=== PATIENT | female | born 1975 | race Caucasian/White ===

== ENCOUNTER → 2017-06-24 | Outpatient (CLI) | payer BC ==
[~2017-06-24] MED LIST: ACHYD1T PO; BIRTH CONTROL PO; DCS100C PO; HYDR25TA4 PO; IBP800T PO; METH250T; OXYC-272 PO; PREN1TAB39; PREN1TAB39 PO
--- NOTE | 2017-06-24 17:22 | Diagnostic Imaging Report ---
INDICATION: Routine screening. COMPARISON: Comparison is made with prior exam from 07/18/2014. The current study was also evaluated with a Computer Aided Detection (CAD) system. FINDINGS: Scattered fibroglandular densities are identified bilaterally. The parenchymal pattern appears stable. A benign-appearing nodular density in the upper-outer right breast appears stable. No new mass or malignant appearing microcalcifications are seen. The axillae are unremarkable. IMPRESSION: No mammographic features suspicious for malignancy are identified. ACR BI-RADS Category 2: Benign findings. Result letter will be mailed to the patient. Note: At least 10% of breast cancer is not imaged by mammography. Dictated by: Dictated on workstation # [id number]
== END ==
LOC: RAD 14:20
PROVIDERS: ATTEND Nurse Practitioner Family
DX: Z12.31 Encounter for screening mammogram for malignant neoplasm of breast (principal)
CPT/HCPCS: 77067

== ENCOUNTER → 2018-12-01 | Outpatient (CLI) | payer BC ==
--- NOTE | 2018-12-01 16:41 | Diagnostic Imaging Report ---
PROCEDURE: US Thyroid. TECHNIQUE: Multiple real-time grayscale images were obtained of the thyroid in various projections. INDICATION: Thyroid nodule. COMPARISON: December 11, 2013. FINDINGS: The right lobe of the thyroid gland measures 4.9 x 1.5 x 1.6 cm. A round peripherally calcified nodule is identified within the mid right thyroid lobe measuring 1.0 x 0.7 x 0.6 cm. This has not significantly changed since prior exam from 2013. No new nodules within the right thyroid lobe. The left lobe of the thyroid gland measures 4.9 x 1.4 x 1.9 cm. It maintains a homogeneous echotexture without discrete nodule. The isthmus is unremarkable. IMPRESSION: 1 cm peripherally calcified nodule within the mid right thyroid lobe, not significantly changed since 2014, consistent with benign etiology. No new thyroid nodules identified. Dictated by: Dictated on workstation # [id number]
== END ==
LOC: RAD 15:59
PROVIDERS: ATTEND Family Medicine
DX: Z12.31 Encounter for screening mammogram for malignant neoplasm of breast (principal); E04.1 Nontoxic single thyroid nodule
CPT/HCPCS: 76536

== ENCOUNTER → 2020-03-26 | Outpatient (CLI) | payer BC, OTHER ==
--- NOTE | 2020-03-26 13:57 | Diagnostic Imaging Report ---
INDICATION: Routine screening. COMPARISON: 11/24/2018 and 06/24/2017. TECHNIQUE: 2D and 3D bilateral screening mammography was performed with CAD. FINDINGS: Both breasts are heterogeneously dense, limiting the sensitivity of mammography. An intraparenchymal lymph node in the outer right breast is minimally larger when compared with the prior mammogram. No spiculated mass or malignant appearing microcalcifications are seen. The axillae are unremarkable. IMPRESSION: No mammographic features suspicious for malignancy are identified. ACR BI-RADS Category 2: Benign findings. Result letter will be mailed to the patient. Note: At least 10% of breast cancer is not imaged by mammography. Dictated by: Dictated on workstation # [id number]
== END ==
LOC: RAD 07:45
PROVIDERS: ATTEND Family Medicine
DX: Z12.31 Encounter for screening mammogram for malignant neoplasm of breast (principal)
CPT/HCPCS: 77063; 77067

== ENCOUNTER → 2021-03-31 | Outpatient (CLI) | payer OTHER ==
--- NOTE | 2021-03-31 14:16 | Diagnostic Imaging Report ---
INDICATION: Routine screening. COMPARISON: 03/26/2020 and 11/24/2018. TECHNIQUE: 2D and 3D bilateral screening mammography was performed with CAD. FINDINGS: Scattered fibroglandular densities are identified bilaterally. The intraparenchymal lymph node in the outer right breast appears stable. No new mass or malignant-appearing microcalcifications are seen. The axillae are unremarkable. IMPRESSION: No mammographic features suspicious for malignancy are identified. ACR BI-RADS Category 2: Benign findings. Result letter will be mailed to the patient. Note: At least 10% of breast cancer is not imaged by mammography. Dictated by: Dictated on workstation # [id number]
== END ==
LOC: RAD 12:45
PROVIDERS: ATTEND Family Medicine
DX: Z12.31 Encounter for screening mammogram for malignant neoplasm of breast (principal)
CPT/HCPCS: 77063; 77067

== ENCOUNTER 2021-10-28 21:42 | Emergency (ER) | payer BC, OTHER ==
[2021-10-28] MEDS ORDERED: KETOROLAC 30 MG/ML VIAL IVP STA (21:59)
[2021-10-28] MEDS ORDERED: ONDANSETRON 4 MG/2 ML (SDV) Z0FRAN IVP ONE (22:00)
[2021-10-28] MEDS ORDERED: NS IV 1000 ML 1,000 ML IV SCH (22:00)
--- NOTE | 2021-10-28 22:03 | ED Abdominal Pain ---
General Chief Complaint: Abdominal/GI Problems Stated Complaint: RIGHT SIDE PAIN Source of Information: Patient History of Present Illness Date Seen by Provider: Oct 28, 2021 Time Seen by Provider: 21:55 Initial Comments PT ARRIVES VIA POV FROM HOME STATES AROUND 1730 TODAY, SHE BEGAN HAVING RIGHT FLANK PAIN, ALONG WITH PELVIC PRESSURE AND URGENCY TO URINATE, BUT HAS NOT BEEN ABLE TO URINATE, EXCEPT FOR TINY AMOUNTS AT A TIME--STATES SHE HAS BEEN TO THE BATHROOM AT LEAST 45 TIMES. NO PAIN ON URINATION. HAS HAD NAUSEA AND VOMITED X 2 HAS HAD SWEATS DUE TO PAIN, BUT DOES NOT FEEL LIKE SHE HAS HAD FEVER WENT TO [facility] THIS EVENING, AND UA WAS DONE--NO TREATMENT, TOLD HER SHE WAS DEHYDRATED. SYMPTOMS GOT WORSE AFTER SHE GOT HOME HAS NOT TAKEN ANYTHING FOR SYMPTOMS NO HISTORY OF SIMILAR WAS OUT IN THE HEAT ALL LAST WEEK AND WEEKEND AT A [employer]--TEMP 105 OUTSIDE PT HAS HAD X 2, AND HYSTERECTOMY NO OTHER ABDOMINAL SURGERIES, NO GI OR PROBLEMS PT TAKES MEDICATION FOR HTN AND DIABETES-LISINOPRIL, METFORMIN AND OZEMPIC PT IS LEAVING IN THE MORNING TO GO ON A CRUISE. Allergies and Home Medications Allergies Coded Allergies: No Known Drug Allergies (Unverified , 11/05/08) Patient Home Medication List Home Medication List Reviewed: Yes Hydrochlorothiazide (Hydrochlorothiazide) 25 Mg Tablet, 25 MG PO DAILY, (Reported) Entered as Reported by: JASE TOBAR on 07/05/14 1537 Hydrocodone Bit/Acetaminophen (HYDROcodone/APAP 7.5/325 TAB) 1 Ea Tablet, 1 EA PO Q4-6 PRN for PAIN Prescribed by: JOSUE GARDUNO on 10/28/212318 Ketorolac Tromethamine (Ketorolac Tromethamine) 10 Mg Tablet, 10 MG PO Q6H Prescribed by: JOSUE GARDUNO on 10/28/212318 Nitrofurantoin Monohyd/M-Cryst (Macrobid 100 mg Capsule) 100 Mg Capsule, 1 TAB PO BID Prescribed by: JOSUE GARDUNO on 10/28/212318 Ondansetron (Ondansetron Odt) 8 Mg Tab.rapdis, 8 MG PO Q6H Prescribed by: JOSUE GARDUNO on 10/28/212318 Phenazopyridine HCl (Pyridium) 200 Mg Tablet, 1 TAB PO TID Prescribed by: JOSUE GARDUNO on 10/28/212318 Tamsulosin HCl (Flomax) 0.4 Mg Cap, 0.4 MG PO DAILY Prescribed by: JOSUE GARDUNO on 10/28/212318 Review of Systems Review of Systems Constitutional: see HPI, diaphoresis Respiratory: No Symptoms Reported Cardiovascular: No Symptoms Reported Gastrointestinal: See HPI, Abdominal Pain; Denies Constipated, Denies Diarrhea; Nausea, Vomiting Genitourinary: See HPI, Flank Pain, Urgency Musculoskeletal: see HPI, back pain Skin: no symptoms reported Psychiatric/Neurological: No Symptoms Reported Endocrine: No Symptoms Reported Hematologic/Lymphatic: No Symptoms Reported Past Pmueeyv-Ijxfhr-Xpiicj Hx Patient Social History Tobacco Use?: No Substance use?: No Alcohol Use?: No Past Medical History Surgeries: Yes ( X3; HYST/BSO) Section, Hysterectomy, Oophorectomy Respiratory: No Cardiac: Yes Hypertension Neurological: No Reproductive Disorders: No BLENDER History: Hysterectomy, Menopausal Genitourinary: No Gastrointestinal: No Musculoskeletal: No Endocrine: Yes Diabetes, Non-Insulin dep HEENT: No Cancer: No Psychosocial: No Integumentary: No Blood Disorders: No Family Medical History Arthritis 19 FATHER 19 MOTHER G8 SISTER Cardiovascular disease 19 FATHER 19 MOTHER G8 SISTER FH: cancer G8 SISTER (CERVICAL) Hypertension 19 FATHER 19 MOTHER G8 SISTER No Family History of: AIDS Abdominal aortic aneurysm Nadir's disease Alcoholism Alzheimer's disease Aphasia Asthma Cancer of mouth Cataracts Colon cancer Completed stroke Dementia Diabetes mellitus Glaucoma Myocardial infarction Parkinson's disease Prostate cancer Psychosocial problem Respiratory disorder Seizure disorder Severe allergy Thyroid disease Tuberculosis No Pertinent Family Hx Physical Exam Vital Signs Vital Signs - First Documented 10/28/21 21:51 Temp 36.8 Pulse 83 Resp 16 B/P (MAP) 156/96 (116) Pulse Ox 98 O2 Delivery Room Air Capillary Refill : Height/Weight/BMI Height: 5'4" Weight: 200lbs. oz. 90.271279aq; 34.33 BMI Method:Stated General Appearance: WD/WN, no apparent distress (BUT LOOKS UNCOMFORTABLE) Neck: normal inspection Respiratory: normal breath sounds, no respiratory distress, no accessory muscle use Cardiovascular: regular rate, rhythm, no murmur Gastrointestinal: normal bowel sounds, soft; No distended, No guarding, No rebound; tenderness (SUPRAPUBIC AND RLQ TENDERNESS.S NO FLANK TENDERNESS, BUT RIGHT FLANK IS AREA OF MOST PAIN ); No hernia, No mass Extremities: normal inspection, normal capillary refill Back: no CVA tenderness Neurologic/Psychiatric: area director of home health sales II-XII nml as tested, no motor/sensory deficits, alert, oriented x 3 Skin: cool, damp, pallor Progress/Results/Core Measures Results/Orders Lab Results Laboratory Tests Test 10/28/21 21:58 10/28/21 22:17 Range/Units White Blood Count 12.6 H 4.3-11.0 10^3/uL Red Blood Count 4.65 3.80-5.11 10^6/uL Hemoglobin 14.0 11.5-16.0 g/dL Hematocrit 41 35-52 % Mean Corpuscular Volume 88 80-99 fL Mean Corpuscular Hemoglobin 30 25-34 pg Mean Corpuscular Hemoglobin Concent 34 32-36 g/dL Red Cell Distribution Width 12.5 10.0-14.5 % Platelet Count 214 130-400 10^3/uL Mean Platelet Volume 11.2 9.0-12.2 fL Immature Granulocyte % (Auto) 0 % Neutrophils (%) (Auto) 83 H 42-75 % Lymphocytes (%) (Auto) 13 12-44 % Monocytes (%) (Auto) 3 0-12 % Eosinophils (%) (Auto) 0 0-10 % Basophils (%) (Auto) 0 0-10 % Neutrophils # (Auto) 10.4 H 1.8-7.8 10^3/uL Lymphocytes # (Auto) 1.7 1.0-4.0 10^3/uL Monocytes # (Auto) 0.4 0.0-1.0 10^3/uL Eosinophils # (Auto) 0.0 0.0-0.3 10^3/uL Basophils # (Auto) 0.0 0.0-0.1 10^3/uL Immature Granulocyte # (Auto) 0.0 0.0-0.1 10^3/uL Sodium Level 140 135-145 MMOL/L Potassium Level 3.6 3.6-5.0 MMOL/L Chloride Level 105 98-107 MMOL/L Carbon Dioxide Level 22 21-32 MMOL/L Anion Gap 13 5-14 MMOL/L Blood Urea Nitrogen 11 7-18 MG/DL Creatinine 0.99 0.60-1.30 MG/DL Estimat Glomerular Filtration Rate 71 BUN/Creatinine Ratio 11 Glucose Level 172 H 70-105 MG/DL Calcium Level 9.7 8.5-10.1 MG/DL Corrected Calcium 9.4 8.5-10.1 MG/DL Total Bilirubin 0.6 0.1-1.0 MG/DL Aspartate Amino Transf (AST/SGOT) 14 5-34 U/L Alanine Aminotransferase (ALT/SGPT) 23 0-55 U/L Alkaline Phosphatase 45 40-136 U/L Total Protein 7.2 6.4-8.2 GM/DL Albumin 4.4 3.2-4.5 GM/DL Urine Color YELLOW Urine Clarity CLEAR Urine pH 5.0 5-9 Urine Specific [place] >=1.030 1.016-1.022 Urine Protein NEGATIVE NEGATIVE Urine Glucose (UA) NEGATIVE NEGATIVE Urine Ketones 1+ H NEGATIVE Urine Nitrite NEGATIVE NEGATIVE Urine Bilirubin NEGATIVE NEGATIVE Urine Urobilinogen 0.2 < = 1.0 MG/DL Urine Leukocyte Esterase NEGATIVE NEGATIVE Urine RBC (Auto) 2+ H NEGATIVE Urine RBC 0-2 /HPF Urine WBC 0-2 /HPF Urine Squamous Epithelial Cells 0-2 /HPF Urine Renal Epithelial Cells NONE /HPF Urine Crystals NONE /LPF Urine Bacteria TRACE /HPF Urine Casts NONE /LPF Urine Mucus NEGATIVE /LPF Urine Culture Indicated NO My Orders Orders - JOSUE GARDUNO DO Ed Iv/Invasive Line Start (10/28/21 21:59) Ct Abd/Pelvis Wo(Kidney Stone) (10/28/21 21:59) Abdomen/Kub 1view (10/28/21 21:59) Cbc With Automated Diff (10/28/21 21:59) Comprehensive Metabolic Panel (10/28/21 21:59) Ua Culture If Indicated (10/28/21 21:59) Ed Iv/Invasive Line Start (10/28/21 21:59) Ns Iv 1000 Ml (Sodium Chloride 0.9%) (10/28/21 22:00) Ondansetron Injection (Zofran Injectio (10/28/21 22:00) Ketorolac Injection (Toradol Injection) (10/28/21 21:59) Tamsulosin Capsule (Flomax Capsule) (10/28/21 23:15) Rx-Hydrocodone/Apap 5-325 Mg (Rx-Vicodin (10/28/21 23:15) Rx-Ondansetron Po (Rx-Zofran Po) (10/28/21 23:02) Rx-Naproxen (Rx-Naprosyn) (10/28/21 23:14) Phenazopyridine Tablet (Pyridium Tablet) (10/28/21 23:15) Medications Given in ED Current Medications Medications Dose Ordered Sig/Roseanna Route Start Time Stop Time Status Last Admin Dose Admin Acetaminophen/ Hydrocodone Bitart 1 ea Q4H PRN PO 10/28/21 23:15 10/28/21 23:44 DC 10/28/21 23:25 1 EA Ondansetron HCl 4 mg ONCE ONCE IVP 10/28/21 22:00 10/28/21 22:02 DC 10/28/21 22:16 4 MG Phenazopyridine HCl 200 mg ONCE ONCE PO 10/28/21 23:15 10/28/21 23:16 DC 10/28/21 23:25 200 MG Vital Signs/I&O 10/28/21 10/28/21 21:51 23:43 Temp 36.8 36.8 Pulse 83 73 Resp 16 16 B/P (MAP) 156/96 (116) 124/79 Pulse Ox 98 98 O2 Delivery Room Air Room Air 10/29/21 00:00 Intake Total 1000 ml Balance 1000 ml Progress Progress Note : Progress Note GIVEN IV FLUIDS, TORADOL AND ZOFRAN WITH COMPLETE RELIEF OF SYMPTOMS Diagnostic Imaging Comments PER RADIOLOGIST REPORTS AT 2301: KUB-- FINDINGS: No dilated bowel or free air. Stone seen on CT is not apparent on radiography. IMPRESSION: No dilated bowel or free air. CT ABDOMEN/PELVIS- FINDINGS: Limited views of the lower thorax are unremarkable. The liver is normal without focal lesion. There is no biliary ductal dilation. Gallbladder is normal. Pancreas is normal. Spleen is normal. Adrenal glands are normal. There is a 2 mm stone at the right ureterovesical junction with mild right-sided hydroureteronephrosis. No suspicious renal lesion. There is a nonobstructing 2 mm stone in the left kidney. Urinary bladder is normal. Bowel is normal in caliber without obstruction or inflammation. No free fluid or air. No abdominal or pelvic lymphadenopathy. Aorta is normal in caliber without aneurysm. There is no suspicious osseus lesion. IMPRESSION: Right ureterovesical junction stone measuring 2 mm with mild right-sided hydroureteronephrosis. Reviewed: Reviewed by Me Departure Impression Primary Impression: Right distal ureteral calculus Disposition: HOME, SELF-CARE Condition: Improved Departure-Patient Inst. Decision time for Depature: 23:10 Referrals: GORGE ALSTON DO (PCP/Family) Primary Care Physician PIOTR ROMAN MD Patient Instructions: How to Strain Your Urine, Kidney Stone, Adult ED Add. Discharge Instructions: INCREASE YOUR WATER AND FLUID INTAKE STRAIN ALL URINE, RETURN ANY STONES TO DR. ROMAN'S OFFICE FOLLOW UP WITH DR. ROMAN SOON POSSIBLE RETURN TO ER IF SYMPTOMS WORSEN All discharge instructions reviewed with patient and/or family. Voiced understanding. Scripts Ondansetron (Ondansetron Odt) 8 Mg Tab.rapdis 8 MG PO Q6H, #10 TAB Prov: JOSUE GARDUNO DO 10/28/21 Hydrocodone Bit/Acetaminophen (HYDROcodone/APAP 7.5/325 TAB) 1 Ea Tablet 1 EA PO Q4-6 PRN for PAIN, #20 TAB Prov: JOSUE GARDUNO DO 10/28/21 Ketorolac Tromethamine (Ketorolac Tromethamine) 10 Mg Tablet 10 MG PO Q6H for Pain, #15 TAB Prov: JOSUE GARDUNO DO 10/28/21 Tamsulosin HCl (Flomax) 0.4 Mg Cap 0.4 MG PO DAILY, #10 CAP Prov: JOSUE GARDUNO DO 10/28/21 Phenazopyridine HCl (Pyridium) 200 Mg Tablet 1 TAB PO TID, #15 TAB Prov: JOSUE GARDUNO DO 10/28/21 Nitrofurantoin Monohyd/M-Cryst (Macrobid 100 mg Capsule) 100 Mg Capsule 1 TAB PO BID, #20 CAP Prov: JOSUE GARDUNO DO 10/28/21 JOSUE GARDUNO DO Oct 28, 2021 22:03
[2021-10-28 22:07] LABS: BASOPHILS % (AUTO) 0 % (0-10); EOSINOPHILS % (AUTO) 0 % (0-10); HEMATOCRIT 41 % (35-52); LYMPHOCYTES # (AUTO) 1.7 10^3/uL (1.0-4.0); LYMPHOCYTES % (AUTO) 13 % (12-44); MEAN CORPUSCULAR HEMOGLOBIN 30 pg (25-34); MEAN CORPUSCULAR HGB CONC 34 g/dL (32-36); MEAN CORPUSCULAR VOLUME 88 fL (80-99); MEAN PLATELET VOLUME 11.2 fL (9.0-12.2); MONOCYTES # (AUTO) 0.4 10^3/uL (0.0-1.0); MONOCYTES % (AUTO) 3 % (0-12); NEUTROPHILS # (AUTO) 10.4 10^3/uL (1.8-7.8); NEUTROPHILS % (AUTO) 83 % (42-75); PLATELET COUNT 214 10^3/uL (130-400); WHITE BLOOD COUNT 12.6 10^3/uL (4.3-11.0)
[2021-10-28 22:13] LABS: ALBUMIN 4.4 GM/DL (3.2-4.5)
[2021-10-28 22:14] LABS: POTASSIUM 3.6 MMOL/L (3.6-5.0)
[2021-10-28 22:15] LABS: CALCIUM 9.7 MG/DL (8.5-10.1)
[2021-10-28 22:16] LABS: TOTAL PROTEIN 7.2 GM/DL (6.4-8.2)
[2021-10-28 22:18] LABS: BILIRUBIN,TOTAL 0.6 MG/DL (0.1-1.0)
[2021-10-28 22:19] LABS: CREATININE SERUM 0.99 MG/DL (0.60-1.30)
[2021-10-28 22:24] LABS: BILIRUBIN,URINE NEGATIVE (NEGATIVE); CLARITY,URINE CLEAR; COLOR,URINE YELLOW; GLUCOSE, URINE (UA) NEGATIVE (NEGATIVE); KETONES,URINE 1+ (NEGATIVE); LEUKOCYTE ESTERASE ,URINE NEGATIVE (NEGATIVE); NITRITE,URINE NEGATIVE (NEGATIVE); PROTEIN,URINE NEGATIVE (NEGATIVE)
[2021-10-28 22:31] LABS: BACTERIA,URINE TRACE /HPF; RBC,URINE 0-2 /HPF; SQUAMOUS EPITHELIAL CELL,UR 0-2 /HPF; WBC,URINE 0-2 /HPF
--- NOTE | 2021-10-28 22:53 | Diagnostic Imaging Report ---
EXAMINATION: CT abdomen and pelvis without contrast. TECHNIQUE: Multiple contiguous axial images were obtained through the abdomen and pelvis without the use of intravenous contrast. All CT scans use one or more of the following dose optimizing techniques: automated exposure control, MA and/or KvP adjustment based on patient size and exam type or iterative reconstruction. HISTORY: Flank pain. COMPARISON: 07/18/2014. FINDINGS: Limited views of the lower thorax are unremarkable. The liver is normal without focal lesion. There is no biliary ductal dilation. Gallbladder is normal. Pancreas is normal. Spleen is normal. Adrenal glands are normal. There is a 2 mm stone at the right ureterovesical junction with mild right-sided hydroureteronephrosis. No suspicious renal lesion. There is a nonobstructing 2 mm stone in the left kidney. Urinary bladder is normal. Bowel is normal in caliber without obstruction or inflammation. No free fluid or air. No abdominal or pelvic lymphadenopathy. Aorta is normal in caliber without aneurysm. There is no suspicious osseus lesion. IMPRESSION: Right ureterovesical junction stone measuring 2 mm with mild right-sided hydroureteronephrosis. Dictated by: Dictated on workstation # [id number]
--- NOTE | 2021-10-28 22:56 | Diagnostic Imaging Report ---
EXAMINATION: Abdomen 1 view. HISTORY: Abdomen pain. COMPARISON: None available. FINDINGS: No dilated bowel or free air. Stone seen on CT is not apparent on radiography. IMPRESSION: No dilated bowel or free air. Dictated by: Dictated on workstation # [id number]
[2021-10-28] MEDS ORDERED: RX-ONDANSETRON 4 MG ODT (ZOFRAN) PPK #4 PO STA (23:02)
[2021-10-28] MEDS ORDERED: RX-NAPROXEN (NAPROSYN) 250 MG TAB PPK#4 PO STA (23:14)
[2021-10-28] MEDS ORDERED: PHENAZOPYRIDINE 100 MG (PYRIDIUM) TABLET PO ONE (23:15)
[2021-10-28] MEDS ORDERED: TAMSULOSIN 0.4 MG (FLOMAX) CAP PO SCH (23:15)
[2021-10-28] MEDS ORDERED: ONDA8TAB13 PO (23:19)
[2021-10-28] MEDS ORDERED: NITR-65 PO (23:19)
[2021-10-28] MEDS ORDERED: TMSL.4C PO (23:19)
[2021-10-28] MEDS ORDERED: KETO10TA PO (23:19)
[2021-10-28] MEDS ORDERED: PHEN-640 PO (23:19)
[2021-10-28] MEDS ORDERED: HYDR-34 PO (23:19)
[2021-10-28 23:43] VITALS: BP 124/79
== END 2021-10-28 23:43 | disposition home or self-care (01) ==
LOC: EDUNIT# 21:42 → ER 21:45
DX: N13.2 Hydronephrosis with renal and ureteral calculous obstruction (principal); I10 Essential (primary) hypertension; E11.9 Type 2 diabetes mellitus without complications; Z90.710 Acquired absence of both cervix and uterus; Z90.722 Acquired absence of ovaries, bilateral; Z79.84 Long term (current) use of oral hypoglycemic drugs; Z79.899 Other long term (current) drug therapy
CPT/HCPCS: 36415; 74018; 74176; 80053; 81000; 85025

== ENCOUNTER → 2022-04-02 | Outpatient (CLI) | payer BC ==
[~2022-04-02] MED LIST changes: +HYDR-34 PO; +KETO10TA PO; +NITR-65 PO; +ONDA8TAB13 PO; +PHEN-640 PO; +TMSL.4C PO
--- NOTE | 2022-04-02 12:09 | Diagnostic Imaging Report ---
INDICATION: Routine screening. Comparison is made with prior mammogram from 03/31/2021 and 03/26/2020. 2-D and 3-D bilateral screening mammography was performed with CAD. Both breasts are heterogeneously dense, limiting the sensitivity of mammography. The parenchymal pattern is stable. Benign nodule of outer right breast is stable. No new mass or malignant appearing microcalcifications are seen. Axillae are unremarkable. IMPRESSION: No mammographic features suspicious for malignancy are identified. ACR BI-RADS Category 2: Benign findings. Result letter will be mailed to the patient. Note: At least 10% of breast cancer is not imaged by mammography. BI-RADS Category 2 Dictated by: Dictated on workstation # [id number]
== END ==
LOC: RAD 11:15
PROVIDERS: ATTEND Obstetrics & Gynecology
DX: Z12.31 Encounter for screening mammogram for malignant neoplasm of breast (principal)
CPT/HCPCS: 77063; 77067

== ENCOUNTER → 2022-11-08 | Outpatient (CLI) | payer BC ==
[~2022-11-08] VITALS: Ht 162.6 cm; Wt 73.5 kg
[~2022-11-08] MED LIST changes: +LISI1TAB44 PO; +METF-397 PO; +SEMA2PEN SQ
== END | disposition home or self-care (01) ==
LOC: PREOP 09:15
PROVIDERS: ATTEND Internal Medicine
DX: Z01.818 Encounter for other preprocedural examination (principal)

== ENCOUNTER 2022-11-12 08:09 | Day surgery (SDC) | payer BC ==
--- NOTE | 2022-11-09 09:02 | HISTORY AND PHYSICAL ---
COLONOSCOPY HISTORY AND PHYSICAL HISTORY OF PRESENT ILLNESS: The patient is a 47-year-old white female being referred for her first screening colonoscopy by Dr. Flanagan. She is deemed to be of average risk because she is not aware of any family history for colon cancer. She denies bright red blood per rectum, melena, abdominal pain or change in bowel habit. PAST MEDICAL HISTORY: Significant for type 2 diabetes for which she is on metformin and Ozempic. She has a history of hypertension that she takes lisinopril for, her only other prescription medication. ALLERGIES: SHE REPORTS NO KNOWN DRUG ALLERGIES. PAST SURGICAL HISTORY: Significant for 3 sections and total abdominal hysterectomy for benign reasons. Ovaries were left. FAMILY HISTORY: Mother living at the age of 73, recent diagnosis of breast cancer. Dad at the age of 52 in a motor vehicle accident. Had a twin sister with no health problems. No diabetes. REVIEW OF SYSTEMS: CONSTITUTIONAL: Denies night sweats, chills, fever, with slow weight loss on Ozempic. GASTROINTESTINAL: As noted in the HPI. PULMONARY: Denies cough, wheezing or shortness of breath. CARDIOVASCULAR: Denies chest pain, orthopnea, PND, or pedal edema. PHYSICAL EXAMINATION: GENERAL: Reveals a white female, appeared to be in no acute distress. VITAL SIGNS: Weight 161.8 pounds, blood pressure 110/70. HEENT: Unremarkable. CHEST: Clear. CARDIOVASCULAR: Reveals regular rate and rhythm without murmur, S3, or S4. ABDOMEN: Soft, supple without mass, organomegaly, or tenderness. EXTREMITIES: Reveal no cyanosis, clubbing or edema. ASSESSMENT AND PLAN: 1. The patient is being set up for her first screening colonoscopy. Rationale for the procedure was discussed. Prep instructions were given and questions were answered. 2. Reported well controlled type 2 diabetes. Considering Ozempic, we will give Zofran Melt tab half an hour before each split dose of her Sutab prep. I thank you for the referral of this pleasant lady. Job ID: [id number] DocumentID: [id number] Dictated Date: 11/04/2022 16:50:09 Coding Quality Coordinator Date: 11/04/2022 17:23:00 Dictated By: PHYLLIS BANDA MD
[~2022-11-12] VITALS: Ht 162.6 cm; Wt 73.5 kg
[2022-11-12] MEDS ORDERED: LACTATED RINGERS 1,000 ML IV STA (08:12)
--- NOTE | 2022-11-12 08:26 | Pre-Op Note & Conscious Sedat ---
Pre-Operative Progress Note Date H&P Reviewed: Nov 12, 2022 Time H&P Reviewed: 08:26 History & Physical: H&P Reviewed, Patient Examed, No changes noted Pre-Op Diagnosis: screening Moderate Sedation PreProcedure ASA Score 2 Airway Lungs Heart ASA score ASA 1: a normal healthy patient ASA 2: a patient with a mild systemic disease (mid diabetes, controlled hypertension, obesity ASA 3: a patient with a severe systemic disease that limits activity (angina, COPD, prior Myocardial infarction) ASA 4: a patient with an incapacitating disease that is a constant threat to life (CHF, renal failure) ASA 5: a moribund patient not expected to survive 24 hrs. (ruptured aneurysm) ASA 6: a declared brain- patient whose organs are being harvested. For emergent operations, add the letter E after the classification Mallampati Classification Grade 2 Sedation Plan Analgesia, Amnesia, Plan communicated to team members, Discussed options with patient/fam, Discussed risks with patient/fam The patient is an appropriate candidate to undergo the planned procedure, sedation, and anesthesia. The patient immediately re-assessed prior to indication. PHYLLIS BANDA MD Nov 12, 2022 08:26
[2022-11-12 08:35] VITALS: BP 117/80
[2022-11-12] MEDS ORDERED: PROPOFOL INJECTION 50 ML IV ONE (09:24)
[2022-11-12 09:50] VITALS: BP 82/54
--- NOTE | 2022-11-12 09:52 | Anesthesia-General Post-Op ---
MAC Patient Condition Mental Status/LOC: Same as Preop Cardiovascular: Satisfactory Nausea/Vomiting: Absent Respiratory: Satisfactory Pain: Controlled Complications: Absent Post Op Complications Complications None Follow Up Care/Instructions Patient Instructions None needed. Anesthesiology Discharge Order Discharge Order Patient is doing well, no complaints, stable vital signs, no apparent adverse anesthesia problems. No complications reported per nursing. JENNI RAWLS CRNA Nov 12, 2022 09:52
[2022-11-12 09:55] VITALS: BP 86/51
--- NOTE | 2022-11-12 09:56 | Progress Note-Post Operative ---
Post-Procedure Note Physician (s)/Skin Carver (s) Physician PHYLLIS BANDA MD Pre-Procedure Diagnosis Pre-Procedure Diagnosis: screening Post-Procedure Diagnosis Post-operative diagnosis: Prior to undergoing colonoscopy digital rectal evaluation was performed. Anal sphincter tone was normal and the perianal reflexes intact. normalities noted on digital inspection of the anal canal or distal rectal vault. The colonoscope was then inserted into the rectum and under direct physician advanced the cecum. The cecum was identified by the indication of the ileocecal valve and appendiceal orifice. Photographic dictation was obtained. Careful suction was made as the colonoscope withdrawn. Quality prep was good. Findings there are no evidence of internal or external hemorrhoids. present at the rectosigmoid junction was a 3 mm sessile hyperplastic appearing polyp it was removed via cold forceps in's entirety with minimal blood loss. The sigmoid colon descending colon splenic flexure transverse colon hepatic flexure ascending colon and cecum were unremarkable. A/P 1. 1 diminutive hyperplastic appearing polyp was removed via cold forceps from the rectosigmoid junction with an otherwise normal colonoscopy to the cecum under good prep conditions would advocate consideration for repeat screening colonoscopy in 10 years. I thank you for the furl this pleasant lady sincerely Phyllis Banda MD. CC: PHYLLIS Causey MD Nov 12, 2022 09:55
[2022-11-12 10:00] VITALS: BP 92/58
[2022-11-12 10:25] VITALS: BP 105/60
[2022-11-12 10:45] VITALS: BP 105/60
== END 2022-11-12 10:45 | disposition home or self-care (01) ==
LOC: ENDO 08:09
PROVIDERS: ATTEND Internal Medicine
DX: Z12.11 Encounter for screening for malignant neoplasm of colon (principal); K63.5 Polyp of colon; K62.1 Rectal polyp; E11.9 Type 2 diabetes mellitus without complications; I10 Essential (primary) hypertension; Z79.84 Long term (current) use of oral hypoglycemic drugs; Z79.899 Other long term (current) drug therapy; Z79.85 Long-term (current) use of injectable non-insulin antidiabetic drugs; Z28.310 Unvaccinated for COVID-19
CPT/HCPCS: 88305